=== PATIENT | male | born 1935 | race Caucasian/White ===

== ENCOUNTER → 2018-01-27 09:24 | Outpatient (CLI) | payer OTHER, MEDICARE, SELFPAY ==
[2018-01-27 10:02] LABS: Add Manual Diff / Slide Review NO; Eosinophils Percent Auto 8.4 % (2-4); Hematocrit 40.5 % (41-53); Hemoglobin 13.9 g/dL (13.5-17.5); Lymphocytes Percent Auto 31.5 % (25-40); Mean Corpuscular HGB Conc 34.3 % (30-36); Mean Corpuscular Hemoglobin 33.7 PG (26-34); Mean Corpuscular Volume 98.3 fL (80-100); Monocytes Percent Auto 9.2 % (3-14); Neutrophils Absolute Auto 3200 /uL (3000-5900); Neutrophils Percent Auto 48.9 % (50-75); Platelet Count 182 X10^3/uL (150-400); Red Blood Cell Count 4.12 X10^6/uL (4.5-5.9); Red Cell Distribution Width 13.3 % (11.6-14.8); White Blood Cell Count 6.6 X10^3/uL (4.5-11.0)
[2018-01-27 10:41] LABS: Alanine Aminotransferase 43 IU/L (21-72); Albumin 4.2 g/dL (3.5-5.0); Albumin Globulin Ratio 1.5 (1.0-2.8); Alkaline Phosphatase 71 U/L (38-126); Aspartate Aminotransferase 29 IU/L (17-59); BUN Creatinine Ratio 22.2 (6-22); Bilirubin Total 0.7 mg/dL (0.2-1.3); Blood Urea Nitrogen 20 mg/dL (9-20); Calcium 8.9 mg/dL (8.4-10.2); Carbon Dioxide 26 mmol/L (22-32); Chloride 104 mmol/L (98-107); Cholesterol 152 mg/dL (140-199); Estimated Glomerular Filt Rate > 60.0 mL/min (>60); Globulin 2.8 g/dL (1.7-4.1); Glucose 116 mg/dL (80-110); HDL Cholesterol 58 mg/dL (40-60); HEMOLYSIS < 15 (0-50); LDL Cholesterol Calculated 81 mg/dL (<100); Potassium 4.8 mmol/L (3.4-5.1); Sodium 142 mmol/L (137-145); Triglycerides 66 mg/dL (35-150)
[2018-01-27 11:05] LABS: Prostate Specific Antigen Scrn 1.13 ng/mL (0.1-4.0)
== END ==
PROVIDERS: PCP Internal Medicine; Visit Provider Internal Medicine
DX: I25.10 Atherosclerotic heart disease of native coronary artery without angina pectoris (principal); Z12.5 Encounter for screening for malignant neoplasm of prostate
CPT/HCPCS: 36415; 80053; 80061; 85025; G0103

== ENCOUNTER → 2019-06-05 13:34 | Outpatient (CLI) | payer MEDICARE, SELFPAY ==
[2019-06-05 16:04] LABS: Blood Urea Nitrogen 28 mg/dL (9-20); Calcium 9.8 mg/dL (8.4-10.2); Carbon Dioxide 25 mmol/L (22-32); Chloride 103 mmol/L (98-107); Estimated Glomerular Filt Rate > 60.0 mL/min (>60); Glucose 105 mg/dL (80-110); HEMOLYSIS < 15 (0-50); Potassium 4.4 mmol/L (3.4-5.1); Sodium 140 mmol/L (137-145)
== END ==
PROVIDERS: PCP Internal Medicine; Visit Provider Specialist
DX: R31.9 Hematuria, unspecified (principal)
CPT/HCPCS: 36415; 80048

== ENCOUNTER → 2019-06-11 09:01 | Outpatient (CLI) | payer MEDICARE, SELFPAY ==
--- NOTE | 2019-06-11 | DI.CT.S_ITS ---
PROCEDURE: CT ABDOMEN PELVIS WO/W CON INDICATIONS: Hematuria, unspecified TECHNIQUE: Optional 5 mm thick noncontrast images acquired from the diaphragm to the symphysis pubis. After the administration of intravenous contrast, 5 mm thick images acquired from the diaphragm to the symphysis pubis after a 10-minute delay. 2 mm thick coronal and sagittal reformats were then performed of the kidneys and ureters. For radiation dose reduction, the following was used: automated exposure control, adjustment of mA and/or kV according to patient size. COMPARISON: None. FINDINGS: Image quality: Excellent. Lung bases: Lung bases are clear. Heart size is normal. Post median sternotomy. Coronary artery calcifications. Urinary system: Mild atrophy of the right kidney. No hydronephrosis or nephrolithiasis. There is normal bilateral renal enhancement. No solid renal mass. A few simple cysts. Renal calyces appear normal in morphology when filled with contrast. Opacified portions of both ureters demonstrate normal caliber. No ureteral filling defects. Left base bladder mass measuring 2.6 x 1.9 cm, (3/196). No bladder stone. Other solid organs: Liver is normal in size and enhancement. Possible hepatic steatosis. A few small well circumscribed hypodensities which have the appearance of benign cysts. Gallbladder is normal. Biliary system is non dilated. Pancreas enhances normally. Spleen is normal in size and enhancement. No adrenal nodules. Peritoneum and bowel: Bowel loops demonstrate normal wall thickness and caliber. Moderate sigmoid colon diverticulosis. No free fluid or air. Nodes and vessels: No retroperitoneal or mesenteric adenopathy by size criteria. Infrarenal abdominal aortic aneurysm measures 4.3 cm, (5/22). Aortoiliac stent graft repair is patent. No obvious endoleak. Moderate calcified atherosclerotic plaque. The celiac, SMA, PARMINDER are patent. Abdominal wall: Small fat containing paraumbilical hernia. Pelvis: No pathologic free pelvic fluid. Prostate median lobe hypertrophy. No inguinal hernias or adenopathy. Bones: No suspicious bony lesions. No vertebral body compression fractures. IMPRESSION: 1. Left base bladder mass measuring approximately 2.6 cm. 2. No renal mass. No upper urinary tract filling defect identified. 3. Abdominal aortic aneurysm stent graft repair. Comment: Findings were discussed with Fabian Benjamin M.D. by Dawson Smith M.D. at the time of dictation. Dictated by: Dawson Smith M.D. on 06/11/2019 at 14:38 Approved by: Dawson Smith M.D. on 06/11/2019 at 15:04
== END ==
PROVIDERS: Family Provider Internal Medicine; PCP Internal Medicine; Visit Provider Specialist
DX: R31.9 Hematuria, unspecified (principal); N32.9 Bladder disorder, unspecified
CPT/HCPCS: 74178; Q9967

== ENCOUNTER → 2019-08-05 10:30 | Outpatient (CLI) | payer MEDICARE, OTHER, SELFPAY ==
[2019-08-05 11:03] LABS: BUN Creatinine Ratio 19.2 (6-22); Blood Urea Nitrogen 23 mg/dL (9-20); Calcium 8.9 mg/dL (8.4-10.2); Carbon Dioxide 24 mmol/L (22-32); Chloride 108 mmol/L (98-107); Estimated Glomerular Filt Rate 57.8 mL/min (>60); Glucose 124 mg/dL (80-110); HEMOLYSIS < 15 (0-50); Potassium 4.5 mmol/L (3.4-5.1); Sodium 141 mmol/L (137-145)
--- NOTE | 2019-08-05 11:19 | DI.CT.S_ITS ---
PROCEDURE: CT ABDOMEN PELVIS WO/W CON INDICATIONS: BLADDER TUMOR TECHNIQUE: Optional 5 mm thick noncontrast images acquired from the diaphragm to the symphysis pubis. After the administration of intravenous contrast, 5 mm thick images acquired from the diaphragm to the symphysis pubis after a 10-minute delay. 2 mm thick coronal and sagittal reformats were then performed of the kidneys and ureters. For radiation dose reduction, the following was used: automated exposure control, adjustment of mA and/or kV according to patient size. COMPARISON: [facility], CT, CT ABDOMEN PELVIS WO/W CON, 06/11/2019, 9:09. [facility], CR, XR INTRAOPERATIVE FLUORO UP TO 1 HOUR, 07/20/2019, 10:11. FINDINGS: Image quality: Excellent. Lung bases: Lung bases are clear. Heart size is normal. Urinary system: Both kidneys are normal in size, without hydronephrosis or nephrolithiasis on pre-contrast images. There is a double pigtail left ureteral stent in expected position. The post contrast imaging shows this ureteral stent to pass into the bladder lumen through an area of prior polypoid mass seen by CT scanning 06/11/19 and no longer identified as a discrete entity. There is mild irregular left lateral and left posterolateral mild bladder wall thickening, in the area of potential prior surgical intervention related to that mass. No perinephric fat stranding. There is normal bilateral renal enhancement. Renal calyces appear normal in morphology when filled with contrast. Opacified portions of both ureters demonstrate normal caliber. Bladder wall thickness is normal. No calcified bladder stones. Other solid organs: Liver is normal in size and enhancement. Gallbladder appears normal. Biliary system is non dilated. Pancreas enhances normally. Spleen is normal in size and enhancement. No adrenal nodules. Peritoneum and bowel: Bowel loops demonstrate normal wall thickness and caliber. No free fluid or air. Nodes and vessels: No retroperitoneal or mesenteric adenopathy by size criteria. Aorta and inferior vena cava are normal in size. Aortobiiliac bypass graft is again noted. Abdominal wall: No ventral hernias. Pelvis: No pathologic free pelvic fluid. No inguinal hernias or adenopathy. Bones: No suspicious bony lesions. No vertebral body compression fractures. IMPRESSION: Interval placement of a double pigtail left ureteral stent which crosses through the area of prior polypoid mass involving the left trigone of the bladder, virtually at or immediately adjacent to the left ureteral orifice seen on CT scanning 06/11/19. No metastatic disease found. Incidental note is again made of a normally positioned aortobiiliac bypass graft. No operative complications seen. Dictated by: Naveed Michele M.D. on 08/05/2019 at 15:38 Approved by: Naveed Michele M.D. on 08/05/2019 at 15:43
== END ==
PROVIDERS: Family Provider Internal Medicine; PCP Internal Medicine; Visit Provider Specialist
DX: D49.4 Neoplasm of unspecified behavior of bladder (principal); C61 Malignant neoplasm of prostate; Z96.0 Presence of urogenital implants
CPT/HCPCS: 36415; 74178; 80048; Q9967

== ENCOUNTER → 2019-11-25 09:19 | Outpatient (CLI) | payer MEDICARE, OTHER, SELFPAY ==
[2019-11-25 10:11] LABS: BUN Creatinine Ratio 29.9 (6-22); Blood Urea Nitrogen 26 mg/dL (9-20); Calcium 9.2 mg/dL (8.4-10.2); Carbon Dioxide 25 mmol/L (22-32); Chloride 107 mmol/L (98-107); Estimated Glomerular Filt Rate > 60.0 mL/min (>60); Glucose 126 mg/dL (80-110); HEMOLYSIS < 15 (0-50); Potassium 4.3 mmol/L (3.4-5.1); Sodium 140 mmol/L (137-145)
--- NOTE | 2019-11-25 10:18 | DI.CT.S_ITS ---
PROCEDURE: CT ABDOMEN PELVIS WO/W CON INDICATIONS: Malignant neoplasm of lateral wall of bladder TECHNIQUE: Optional 5 mm thick noncontrast images acquired from the diaphragm to the symphysis pubis. After the administration of intravenous contrast, 5 mm thick images acquired from the diaphragm to the symphysis pubis after a 10-minute delay. 2 mm thick coronal and sagittal reformats were then performed of the kidneys and ureters. For radiation dose reduction, the following was used: automated exposure control, adjustment of mA and/or kV according to patient size. COMPARISON: [facility], CT, CT ABDOMEN PELVIS WO/W CON, 06/11/2019, 9:09. [facility], CT, CT ABDOMEN PELVIS WO/W CON, 08/05/2019, 11:14. FINDINGS: Image quality: Excellent. Lung bases: Punctate pulmonary nodule at the right lung base. Mild bibasilar atelectasis. Heart size is normal. Post median sternotomy and CABG. Urinary system: Both kidneys are normal in size, without hydronephrosis or nephrolithiasis on pre-contrast images. Scarring at the inferior pole the right kidney. A few small cortical simple cysts. No solid mass. There is normal bilateral renal enhancement. Renal calyces appear normal in morphology when filled with contrast. Opacified portions of both ureters demonstrate normal caliber. No upper urinary tract filling defect within the opacified portions. Layering contrast filling the inferior portion of the urinary bladder. The previously seen thickening along the left bladder base is less conspicuous on both the precontrast and postcontrast images. No calcified bladder stones. Other solid organs: Liver is normal in size. A small cyst in the inferior right lobe, unchanged. Hepatic steatosis. Gallbladder is unremarkable. Biliary system is non dilated. Pancreas enhances normally. Spleen is normal in size and enhancement. No adrenal nodules. Peritoneum and bowel: Bowel loops demonstrate normal wall thickness and caliber. A few scattered colonic diverticuli. No free fluid or air. Nodes and vessels: No retroperitoneal or mesenteric adenopathy by size criteria. Abdominal aortic aneurysm measuring up to 4.3 cm, (5/105), previously 4.3 cm when remeasured in a similar fashion. Post aortoiliac stent graft repair. No endoleak seen. Abdominal wall: Small fat-containing periumbilical hernia. Pelvis: No pathologic free pelvic fluid. Fat containing left inguinal hernia. No adenopathy. Bones: No suspicious bony lesions. Stable L1 mild compression fracture. Multilevel DDD. IMPRESSION: 1. Decrease conspicuity of the left bladder base mass presumably due to treatment. 2. No metastatic disease identified. 3. Stable abdominal aortic aneurysm post aortoiliac stent graft repair. Dictated by: Dawson Smtih M.D. on 11/25/2019 at 10:43 Approved by: Dawson Smith M.D. on 11/25/2019 at 10:58
== END ==
PROVIDERS: Family Provider Internal Medicine; PCP Internal Medicine; Referring Provider Specialist; Visit Provider Specialist
DX: C67.2 Malignant neoplasm of lateral wall of bladder (principal); R91.1 Solitary pulmonary nodule; J98.11 Atelectasis; N28.1 Cyst of kidney, acquired; K76.0 Fatty (change of) liver, not elsewhere classified; I71.4 Abdominal aortic aneurysm, without rupture; K40.90 Unilateral inguinal hernia, without obstruction or gangrene, not specified as recurrent; K42.9 Umbilical hernia without obstruction or gangrene; Z95.1 Presence of aortocoronary bypass graft
CPT/HCPCS: 36415; 74178; 80048; Q9967

== ENCOUNTER → 2020-02-18 09:41 | Outpatient (CLI) | payer MEDICARE, OTHER, SELFPAY ==
[2020-02-18 10:12] LABS: Hemoglobin 13.3 g/dL (13.5-17.5); Mean Corpuscular HGB Conc 34.2 % (30-36); Mean Corpuscular Hemoglobin 33.8 PG (26-34); Mean Corpuscular Volume 98.7 fL (80-100); Platelet Count 194 X10^3/uL (150-400); Red Blood Cell Count 3.95 X10^6/uL (4.5-5.9); Red Cell Distribution Width 13.2 % (11.6-14.8); White Blood Cell Count 10.2 X10^3/uL (4.5-11.0)
[2020-02-18 10:25] LABS: Alanine Aminotransferase 33 IU/L (<50); Albumin 4.2 g/dL (3.5-5.0); Albumin Globulin Ratio 1.4 (1.0-2.8); Alkaline Phosphatase 78 U/L (38-126); Aspartate Aminotransferase 32 IU/L (17-59); Bilirubin Total 0.7 mg/dL (0.2-1.3); Blood Urea Nitrogen 25 mg/dL (9-20); Calcium 9.4 mg/dL (8.4-10.2); Carbon Dioxide 25 mmol/L (22-32); Chloride 106 mmol/L (98-107); Cholesterol 131 mg/dL (140-199); Estimated Glomerular Filt Rate > 60.0 mL/min (>60); Globulin 2.9 g/dL (1.7-4.1); Glucose 116 mg/dL (80-110); HDL Cholesterol 51 mg/dL (40-60); HEMOLYSIS < 15 (0-50); LDL Cholesterol Calculated 66 mg/dL (<100); Potassium 5.2 mmol/L (3.4-5.1); Sodium 139 mmol/L (137-145); Total Protein 7.1 g/dL (6.3-8.2); Triglycerides 72 mg/dL (35-150)
[2020-02-18 11:03] LABS: Neutrophils Absolute Manual 7650 /uL (3000-5900); Total Cells Counted 100
[2020-02-18 11:04] LABS: RBC Morphology Normal Morphology
== END ==
PROVIDERS: Family Provider Internal Medicine; PCP Internal Medicine; Referring Provider Internal Medicine; Visit Provider Internal Medicine
DX: I10 Essential (primary) hypertension (principal); E78.5 Hyperlipidemia, unspecified; I25.10 Atherosclerotic heart disease of native coronary artery without angina pectoris
CPT/HCPCS: 36415; 80053; 80061; 85025

== ENCOUNTER → 2020-03-16 11:31 | Outpatient (CLI) | payer MEDICARE, OTHER, SELFPAY ==
[2020-03-16 12:30] LABS: Add Manual Diff / Slide Review NO; Basophils Absolute Auto 100 /uL (0-100); Basophils Percent Auto 1.2 % (0-2); Eosinophils Absolute Auto 900 /uL (0-450); Eosinophils Percent Auto 9.4 % (2-4); Hematocrit 38.8 % (41-53); Hemoglobin 12.8 g/dL (13.5-17.5); Lymphocytes Absolute Auto 2700 /uL (1100-4500); Lymphocytes Percent Auto 29.6 % (25-40); Mean Corpuscular Hemoglobin 32.7 PG (26-34); Mean Corpuscular Volume 99.1 fL (80-100); Monocytes Absolute Auto 1000 /uL (0-900); Monocytes Percent Auto 11.2 % (3-14); Neutrophils Absolute Auto 4500 /uL (1500-7000); Neutrophils Percent Auto 48.6 % (50-75); Platelet Count 183 X10^3/uL (150-400); Red Blood Cell Count 3.92 X10^6/uL (4.5-5.9); Red Cell Distribution Width 13.5 % (11.6-14.8); White Blood Cell Count 9.2 X10^3/uL (4.5-11.0)
[2020-03-16 12:58] LABS: HEMOLYSIS < 15 (0-50); Iron 93 ug/dL (49-181)
[2020-03-16 13:01] LABS: BUN Creatinine Ratio 24.5 (6-22); Blood Urea Nitrogen 23 mg/dL (9-20); Calcium 9.4 mg/dL (8.4-10.2); Carbon Dioxide 25 mmol/L (22-32); Chloride 106 mmol/L (98-107); Estimated Glomerular Filt Rate > 60.0 mL/min (>60); Glucose 117 mg/dL (80-110); HEMOLYSIS < 15 (0-50); Potassium 4.9 mmol/L (3.4-5.1); Sodium 138 mmol/L (137-145)
[2020-03-16 13:10] LABS: Percent Iron Saturation 36 % (20-50); Total Iron Binding Capacity 258 ug/dL (261-462); Transferrin 191 mg/dL (206-381)
== END ==
PROVIDERS: Family Provider Internal Medicine; PCP Internal Medicine; Referring Provider Internal Medicine; Visit Provider Internal Medicine
DX: E74.39 Other disorders of intestinal carbohydrate absorption (principal); D64.9 Anemia, unspecified; E87.5 Hyperkalemia
CPT/HCPCS: 36415; 80048; 83540; 83550; 85025

== ENCOUNTER → 2021-10-24 10:13 | Outpatient (CLI) | payer MEDICARE, OTHER, SELFPAY ==
--- NOTE | 2021-10-24 | DI.RAD.S_ITS ---
PROCEDURE: XR HIP W PEL IF DONE RT 2V INDICATIONS: Pain in right hip TECHNIQUE: AP pelvis with lateral view(s) of the right hip(s). COMPARISON: None. FINDINGS: Bones: No fractures or dislocations. Pelvic ring appears intact. No suspicious bony lesions. Severe right hip osteoarthritic degenerative changes. Mild left hip osteoarthritis. Soft tissues: The visualized bowel gas pattern is normal. No suspicious soft tissue calcifications. Right groin vascular clips. Partially visualized bilateral common iliac endovascular stents. IMPRESSION: Severe right hip osteoarthritis. Dictated by: Ebony Terrell MD, PhD on 10/24/2021 at 15:21 Approved by: Ebony Terrell MD, PhD on 10/24/2021 at 15:21
== END ==
PROVIDERS: Family Provider Internal Medicine; PCP Internal Medicine; Referring Provider Nurse Practitioner Family; Visit Provider Nurse Practitioner Family
DX: M25.551 Pain in right hip (principal); R26.2 Difficulty in walking, not elsewhere classified; M16.11 Unilateral primary osteoarthritis, right hip
CPT/HCPCS: 73502

== ENCOUNTER → 2023-04-02 13:16 | Outpatient (CLI) | payer MEDICARE, OTHER, SELFPAY ==
--- NOTE | 2023-04-02 13:17 | DI.RAD.S_ITS ---
PROCEDURE: XR SHOULDER RT MIN 2V INDICATIONS: RIGHT SHOULER PAIN TECHNIQUE: 3 views of the shoulder were acquired. COMPARISON: None. FINDINGS: Bones: No fractures or dislocations. No suspicious bony lesions. Visualized ribs appear intact. Soft tissues: No suspicious soft tissue calcifications. IMPRESSION: Unremarkable right shoulder radiographs Approved by: Garrison Mckeon M.D. on 04/02/2023 at 14:21
== END ==
PROVIDERS: PCP Nurse Practitioner Family; Referring Provider Physical Medicine & Rehabilitation; Visit Provider Physical Medicine & Rehabilitation
DX: M25.511 Pain in right shoulder (principal)
CPT/HCPCS: 73030

== ENCOUNTER → 2023-04-03 08:48 | Outpatient (CLI) | payer MEDICARE, OTHER, SELFPAY ==
--- NOTE | 2023-04-03 08:50 | DI.RAD.S_ITS ---
PROCEDURE: XR CERVICAL SPINE 4V OR 5V INDICATIONS: Right apical neck fullness? TECHNIQUE: 5 views of the cervical spine acquired. COMPARISON: None. FINDINGS: Bones: No fractures or dislocations to the C7 level. Mild diffuse degenerative disease. Bilateral facet arthropathy, most pronounced at C3-C4. Oblique images demonstrate moderate bony foraminal stenoses at C3-C4 bilaterally and C5-C6 on the left. Node is made of a broken sternal wire. Soft tissues: No prevertebral soft tissue swelling. IMPRESSION: 1. Degenerative disc and facet disease. 2. Moderate facet arthropathy as described. Dictated by: Marv Alves M.D. on 04/03/2023 at 14:11 Approved by: Marv Alves M.D. on 04/03/2023 at 14:14
== END ==
PROVIDERS: PCP Nurse Practitioner Family; Referring Provider Physical Medicine & Rehabilitation; Visit Provider Physical Medicine & Rehabilitation
DX: M47.812 Spondylosis without myelopathy or radiculopathy, cervical region (principal); M50.30 Other cervical disc degeneration, unspecified cervical region; M25.511 Pain in right shoulder; R22.2 Localized swelling, mass and lump, trunk; M19.011 Primary osteoarthritis, right shoulder; Z96.641 Presence of right artificial hip joint; Z68.28 Body mass index [BMI] 28.0-28.9, adult
CPT/HCPCS: 72050; 99214

== ENCOUNTER → 2023-04-08 11:12 | Outpatient (CLI) | payer MEDICARE, OTHER, SELFPAY ==
--- NOTE | 2023-04-08 11:14 | DI.CT.S_ITS ---
PROCEDURE: CT CHEST WO CON INDICATIONS: Right apical mass?/Personal history of nicotine dependence TECHNIQUE: Noncontrast 5 mm thick sections acquired from the pulmonary apices to the posterior costophrenic angles. 1 mm lung window, 5 mm thick coronal and sagittal and 7 mm axial MIP reformats were then acquired. For radiation dose reduction, the following was used: automated exposure control, adjustment of mA and/or kV according to patient size. COMPARISON: [facility], XR CHEST 2 VIEWS, 02/14/2018, 14:37. [facility], CR, XR SHOULDER RT MIN 2V, 04/02/2023, 13:19. [facility], CR, XR CERVICAL SPINE 4V OR 5V, 04/03/2023, 8:53. FINDINGS: Image quality: Excellent. Lungs and pleura: No mass in the right apex. Mild bilateral subpleural septal thickening. No acute air space opacities. No pleural effusions or pneumothorax. Central and peripheral airways are patent and normal in caliber. Mediastinum: Heart size is normal. Severe coronary artery calcification and CABG. No pericardial effusion. No mediastinal adenopathy by size criteria. Thoracic aorta and central pulmonary arteries are normal in size. Esophagus is normal in caliber. No hiatal hernia. Bones and chest wall: Sternotomy. The most superior sternal wire is fractured. No suspicious bony lesions. No vertebral body compression fractures. No axillary or supraclavicular adenopathy by size criteria. Thyroid gland is normal. Abdomen: Visualized upper abdominal solid organs and bowel loops appear normal in the absence of contrast. IMPRESSION: 1. No right apical mass. 2. Mild bilateral subpleural septal thickening. Dictated by: Marv Alves M.D. on 04/08/2023 at 15:21 Approved by: Marv Alves M.D. on 04/08/2023 at 15:25
== END ==
PROVIDERS: PCP Nurse Practitioner Family; Referring Provider Physical Medicine & Rehabilitation; Visit Provider Physical Medicine & Rehabilitation
DX: J92.9 Pleural plaque without asbestos (principal); R22.2 Localized swelling, mass and lump, trunk; Z87.891 Personal history of nicotine dependence
CPT/HCPCS: 71250

== ENCOUNTER → 2023-04-30 07:24 | Outpatient (CLI) | payer MEDICARE, OTHER, SELFPAY ==
--- NOTE | 2023-04-30 07:25 | DI.MRI.S_ITS ---
PROCEDURE: MR SHOULDER RT WO CON INDICATIONS: Right shoulder pain with cuff tear TECHNIQUE: Noncontrast oblique coronal T2 fast spin echo with fat saturation, oblique sagittal T1 spin echo and T2 fast spin echo with fat saturation, axial T1 spin echo and T2 fast spin echo with fat saturation through the shoulder. COMPARISON: [facility], CR, XR SHOULDER RT MIN 2V, 04/02/2023, 13:19. FINDINGS: Image quality: Excellent. Rotator cuff: There is intermediate-grade partial-thickness tear of the distal supraspinatus tendon involving the articular surface near humeral attachment. There is mild infraspinatus and subscapularis tendinosis. Sagittal images demonstrate no rotator cuff muscle atrophy. Bones and bursae: No bone marrow contusions or fractures. Moderate acromioclavicular and glenohumeral joint degeneration. The acromion demonstrates conventional anatomy, without an os acromiale. No pathologic subacromial-subdeltoid or subcoracoid bursal fluid is present. Capsule and soft tissues: There is superior labral tear involving the biceps anchor The long head of the biceps tendon demonstrates normal location and morphology. The rotator interval appears normal, without fibrosis. The coracohumeral ligament is normal in thickness. IMPRESSION: 1. Partial-thickness tear of the distal supraspinatus tendon. 2. Mild tendinosis of the infraspinatus and subscapularis tendons. 3. Moderate acromioclavicular and glenohumeral joint degeneration. 4. Superior labral tear involving the biceps anchor. Dictated by: Marv Alves M.D. on 04/30/2023 at 11:24 Approved by: Marv Alves M.D. on 05/01/2023 at 12:18
== END ==
PROVIDERS: PCP Nurse Practitioner Family; Referring Provider Physical Medicine & Rehabilitation; Visit Provider Physical Medicine & Rehabilitation
DX: M75.111 Incomplete rotator cuff tear or rupture of right shoulder, not specified as traumatic (principal); M19.011 Primary osteoarthritis, right shoulder; S43.491A Other sprain of right shoulder joint, initial encounter
CPT/HCPCS: 73221

== ENCOUNTER 2023-06-17 22:43 | Emergency (ER) | payer MEDICARE, OTHER, SELFPAY ==
[2023-06-17 22:46] VITALS: BP 171/84; PULSE 72; RESP 18; TEMP 36.1; O2SAT 97; BMI 27.7
--- NOTE | 2023-06-17 22:47 | ED_ITS ---
HPI - General Adult General Chief complaint: Shortness of Breath/Dyspnea Stated complaint: thinks has pnemonia/cant catch breath Time Seen by Provider: 06/17/23 22:47 History of Present Illness HPI narrative: 87M former smoker with coronary artery disease status post bypass, hypertension, hyperlipidemia, history of bladder cancer presents with a chief complaint of shortness of breath over the course of the day. He states he had been in his normal state of health over the course of the evening started noticing he would become increasingly short of breath, primarily when lying flat. He states he has been coughing up some sputum off and on for the past few weeks but really did not think much of it. Tonight he feels similar to when he would previously been diagnosed with pneumonia. He denies exertional symptoms. He is had no fever or chills. He denies any swelling of his lower extremities. Related Data Home Medications Medication Instructions Recorded Confirmed valsartan 320 mg tablet 320 mg PO DAILY 06/10/20 04/03/23 amlodipine 5 mg tablet 5 mg PO DAILY 11/06/21 04/03/23 ibuprofen 200 mg tablet 200 mg PO Q6H PRN 11/06/21 04/03/23 atenolol 50 mg tablet 50 mg PO BID 11/15/21 04/03/23 atorvastatin 20 mg tablet 20 mg PO DAILY 04/03/23 04/03/23 Previous Rx's Medication Instructions Recorded furosemide 40 mg tablet (Lasix) 40 mg PO DAILY #5 tabs 06/18/23 Allergies Allergy/AdvReac Type Severity Reaction Status Date / Time No Known Drug Allergies Allergy Verified 04/03/23 07:58 Review of Systems Review of Systems Narrative: GENERAL: Denies chills, fatigue, malaise, fever, sweats. HEENT: Denies sinus pain, ear pain, sore throat, difficulty swallowing, dizziness. RESPIRATORY: See HPI CARDIOVASCULAR: Denies chest pain, palpitations, orthopnea, edema, GASTROINTESTINAL: Denies nausea, vomiting, abdominal pain, diarrhea, constipation, melena. : Denies dysuria, frequency, incontinence, hematuria, urinary retention. MUSCULOSKELETAL: denies weakness, joint pain, or bony pain SKIN: Denies rash, skin lesions, or other NEUROLOGIC: Denies weakness, headache, numbness, change in speech, confusion, seizures, incoordination. PSYCHIATRIC: No concerning psychosocial issues. 12 point review of systems is negative except for those stated above Patient History Medical History Hearing impairment History of tobacco use Mass of chest wall, right Acute neck pain DJD of right shoulder Degenerative joint disease of right hip BPH w urinary obs/LUTS History of primary bladder cancer Bladder cancer Surgical History S/P total right hip arthroplasty H/O cystoscopy Social History Smoking Status: Former smoker Smoking Status: Former smoker Exam Narrative Exam Narrative: GENERAL: [87 year old patient appears stated age. Well-developed patient, in mild distress. HEAD: Atraumatic. Normocephalic. EYES: Pupils equal round and reactive. Extraocular motions intact. No scleral icterus. No injection or drainage. ENT: Nose without bleeding, purulent drainage. Throat without erythema, tonsillar hypertrophy or exudate. Airway patent. NECK: Trachea midline. Non tender CARDIOVASCULAR: Regular rate and rhythm without murmurs, gallops, or rubs. RESPIRATORY: No significant increased work of breathing, decreased lung sounds throughout with slightly prolonged expiratory phase, faint crackles bilateral bases, no use of accessory muscles, no hypoxemia GASTROINTESTINAL: Abdomen soft, non-tender, nondistended. EXTREMITIES: No edema or joint tenderness. BACK: Nontender without deformity or crepitance. No flank tenderness. NEURO: AOx3. SKIN: No rash or erythema of visible areas Initial Vital Signs Initial Vital Signs: Vital Signs Temperature 97 F L 06/17/23 22:46 Pulse Rate 72 06/17/23 22:46 Respiratory Rate 18 06/17/23 22:46 Blood Pressure 171/84 H 06/17/23 22:46 Pulse Oximetry 97 06/17/23 22:46 Oxygen Delivery Method Room Air 06/17/23 22:46 Course Orders Ordered: ED Orders 06/17/23 22:52 XR chest 1V Stat EKG-12 Lead Stat Measure peak expiratory flow ONCE RT Consult Eval and Treat NOW 06/17/23 23:10 Complete Blood Count AUTO DIFF Stat Comprehensive Metabolic Panel Stat D Dimer Stat Lactate (Lactic Acid) Stat NT-proBNP (BNP-Adult 18+) Stat Procalcitonin Stat Prothrombin Time INR Stat Troponin I Stat 06/18/23 00:08 CT angio chest PE protocol Stat Vital Signs Vital signs: Vital Signs - 8 hr 06/17/23 22:46 06/17/23 22:53 06/17/23 22:54 Temperature 97 F L Pulse Rate 72 Respiratory Rate 18 Blood Pressure 171/84 H 164/77 H Pulse Oximetry 97 99 Oxygen Delivery Method Room Air 06/17/23 22:54 06/17/23 23:00 06/17/23 23:00 Temperature Pulse Rate 71 72 Respiratory Rate 28 H Blood Pressure 153/78 H Pulse Oximetry 97 97 Oxygen Delivery Method 06/17/23 23:30 06/17/23 23:30 06/18/23 00:00 Temperature Pulse Rate 70 Respiratory Rate 19 Blood Pressure 147/68 H 133/65 Pulse Oximetry 97 Oxygen Delivery Method 06/18/23 00:00 06/18/23 00:30 06/18/23 00:31 Temperature Pulse Rate 70 75 Respiratory Rate 17 37 H Blood Pressure 158/70 H Pulse Oximetry 97 Oxygen Delivery Method 06/18/23 00:31 06/18/23 01:00 06/18/23 01:16 Temperature Pulse Rate 76 70 73 Respiratory Rate 29 H 19 20 Blood Pressure Pulse Oximetry 95 96 97 Oxygen Delivery Method 06/18/23 01:16 06/18/23 01:30 06/18/23 01:30 Temperature Pulse Rate 69 Respiratory Rate 26 H Blood Pressure 158/70 H 143/68 H Pulse Oximetry 98 Oxygen Delivery Method 06/18/23 02:00 06/18/23 02:00 Temperature Pulse Rate 69 Respiratory Rate 14 Blood Pressure 136/64 Pulse Oximetry 98 Oxygen Delivery Method Medical Decision Making Lab Data 06/17/23 23:10 06/17/23 23:10 Labs: Lab Results 06/17/23 Range/Units 23:10 WBC 8.8 (4.5-11.0) X10^3/uL RBC 4.16 L (4.5-5.9) X10^6/uL Hgb 13.8 (13.5-17.5) g/dL Hct 40.8 L (41-53) % MCV 98.1 (80-100) fL MCH 33.1 (26-34) PG MCHC 33.7 (30-36) % RDW 13.7 (11.6-14.8) % Plt Count 191 (150-400) X10^3/uL Neut % (Auto) 52.6 (50-75) % Lymph % (Auto) 28.0 (25-40) % [place] % (Auto) 13.1 (3-14) % Eos % (Auto) 5.3 H (2-4) % Baso % (Auto) 1.0 (0-2) % Neut # (Auto) 4600 (2062-7584) /uL Lymph # (Auto) 2500 (9892-9538) /uL [place] # (Auto) 1200 H (0-900) /uL Eos # (Auto) 500 H (0-450) /uL Baso # (Auto) 100 (0-100) /uL PT 10.6 (10.1-12.7) SECONDS INR 0.9 (0.9-1.3) D-Dimer 2495 H (<500) ng/ml Sodium 139 (137-145) mmol/L Potassium 4.6 (3.4-5.1) mmol/L Chloride 107 (98-107) mmol/L Carbon Dioxide 19 L (22-32) mmol/L BUN 16 (9-20) mg/dL Creatinine 0.82 (0.66-1.25) mg/dL Estimated GFR > 60 (>60) mL/min BUN/Creatinine Ratio 19.5 (6-22) Glucose 112 H (80-110) mg/dL Lactate 1.9 (0.7-2.1) mmol/L Calcium 8.9 (8.4-10.2) mg/dL Total Bilirubin 0.5 (0.2-1.3) mg/dL AST 32 (17-59) IU/L ALT 38 (<50) IU/L Alkaline Phosphatase 62 (38-126) U/L Troponin I < 0.012 (0.01-0.034) ng/mL NT-Pro-B Natriuret Pep 934 H (<450) pg/mL Total Protein 7.7 (6.3-8.2) g/dL Albumin 4.2 (3.5-5.0) g/dL Globulin 3.5 (1.7-4.1) g/dL Albumin/Globulin Ratio 1.2 (1.0-2.8) Procalcitonin 0.06 (<0.5) ng/mL MDM Narrative Medical decision making narrative: [87] year old patient presents with shortness of breath and cough Multiple etiologies for patient's symptoms considered including, but not limited to: [Pneumonia versus CHF versus pulmonary embolism versus other] Prior Charts reviewed in our EMR Primary Historian: patient Labs reviewed and interpreted by myself: No significant leukocytosis or left shift, no signs of anemia, D-dimer 2495, primary electrolytes and renal function within normal, troponin negative, BNP 934, procalcitonin 0.06 Imaging reviewed: CTA shows no PE, no pneumonia Patient resting comfortably, no significant work of breathing, no use of accessory muscles or hypoxemia, report of wet cough, worse when lying flat suggestive of possible early, mild CHF. BNP is elevated which is in line with his. Pulmonary embolism considered but thought unlikely given lack of findings on imaging. Pneumonia also considered but thought unlikely given lack of findings on imaging. Findings and discharge diagnosis discussed with patient/family followed by verbalization of understanding Return precautions discussed with patient/family whom verbalize understanding of diagnosis and plan Discharge Plan Departure Patient Disposition: Home Clinical Impression: Breath shortness, Acute exacerbation of CHF (congestive heart failure) Instructions: DI for Heart Failure Activity Restrictions/Additional Instructions: *You have been diagnosed with [shortness of breath most likely due to some fluid overload, no evidence of obvious pneumonia, CT still pending for possible blood clot] *What to do: *Please continue to take your regular medications as directed. [ x] New medication prescriptions sent to your pharmacy: [[facility] ] [ ] New medication written as a paper prescription [ ] No new medications given *Please follow up with your primary care provider in 2-3 days, call for an appointment. Let them know you were seen in the Emergency Department and that we ask that you be seen in follow up. We will electronically transmit a record of today's note if your PCP is in our system *If you do not have a primary care provider please contact the [facility] Resource line at [phone]. They will ask some questions about your medical history and help get you set up with a doctor in the community. *Return to Emergency Department if you should have any new, worsening or concerning symptoms, such as [fever greater than 101 F, shaking chills, worsening pain, persistent vomiting or other bothersome symptoms] Prescriptions: New furosemide [Lasix] 40 mg tablet 40 mg PO DAILY Qty: 5 0RF No Action valsartan 320 mg tablet 320 mg PO DAILY atorvastatin 20 mg tablet 20 mg PO DAILY amlodipine 5 mg tablet 5 mg PO DAILY ibuprofen 200 mg tablet 200 mg PO Q6H PRN atenolol 50 mg tablet 50 mg PO BID Referrals: Sia Parikh ARNP [Primary Care Provider] - Stand Alone Forms: Patient Portal/API
--- NOTE | 2023-06-17 22:52 | DI.RAD.S_ITS ---
PROCEDURE: XR CHEST 1V INDICATIONS: Shortness of breath TECHNIQUE: One view of the chest was acquired. COMPARISON: None. FINDINGS: Surgical changes and devices: Median sternotomy wires. Prior CABG. Lungs and pleura: Lungs are clear. No pleural effusions or pneumothorax. Mediastinum: Prominent cardiomediastinal contour. No significant central venous congestion. Bones and chest wall: No suspicious bony lesions. Overlying soft tissues appear unremarkable. IMPRESSION: 1. Mildly enlarged cardiomediastinal contour with postsurgical changes. This may be a normal postop appearance for this patient. 2. The visible lung bowens are clear. Dictated by: Gege Young M.D. on 06/18/2023 at 0:54 Approved by: Gege Young M.D. on 06/18/2023 at 0:55
[2023-06-17 22:53] VITALS: O2SAT 99
[2023-06-17 22:54] VITALS: BP 164/77; PULSE 71; O2SAT 97
[2023-06-17 23:00] VITALS: BP 153/78; PULSE 72; RESP 28; O2SAT 97
[2023-06-17 23:26] LABS: Add Manual Diff / Slide Review NO; Basophils Absolute Auto 100 /uL (0-100); Eosinophils Absolute Auto 500 /uL (0-450); Eosinophils Percent Auto 5.3 % (2-4); Hematocrit 40.8 % (41-53); Hemoglobin 13.8 g/dL (13.5-17.5); Lymphocytes Absolute Auto 2500 /uL (1100-4500); Mean Corpuscular HGB Conc 33.7 % (30-36); Mean Corpuscular Hemoglobin 33.1 PG (26-34); Mean Corpuscular Volume 98.1 fL (80-100); Monocytes Absolute Auto 1200 /uL (0-900); Monocytes Percent Auto 13.1 % (3-14); Neutrophils Absolute Auto 4600 /uL (1500-7000); Neutrophils Percent Auto 52.6 % (50-75); Platelet Count 191 X10^3/uL (150-400); Red Blood Cell Count 4.16 X10^6/uL (4.5-5.9); Red Cell Distribution Width 13.7 % (11.6-14.8); White Blood Cell Count 8.8 X10^3/uL (4.5-11.0)
[2023-06-17 23:30] VITALS: BP 147/68; PULSE 70; RESP 19; O2SAT 97
[2023-06-17 23:30] LABS: INR 0.9 (0.9-1.3); Prothrombin Time 10.6 SECONDS (10.1-12.7)
[2023-06-17 23:35] LABS: Lactate (Lactic Acid) 1.9 mmol/L (0.7-2.1)
[2023-06-17 23:36] LABS: Alanine Aminotransferase 38 IU/L (<50); Albumin 4.2 g/dL (3.5-5.0); Albumin Globulin Ratio 1.2 (1.0-2.8); Alkaline Phosphatase 62 U/L (38-126); Aspartate Aminotransferase 32 IU/L (17-59); BUN Creatinine Ratio 19.5 (6-22); Bilirubin Total 0.5 mg/dL (0.2-1.3); Blood Urea Nitrogen 16 mg/dL (9-20); Calcium 8.9 mg/dL (8.4-10.2); Carbon Dioxide 19 mmol/L (22-32); Chloride 107 mmol/L (98-107); Estimated Glomerular Filt Rate > 60 mL/min (>60); Globulin 3.5 g/dL (1.7-4.1); Glucose 112 mg/dL (80-110); Potassium 4.6 mmol/L (3.4-5.1); Sodium 139 mmol/L (137-145); Total Protein 7.7 g/dL (6.3-8.2)
[2023-06-17 23:46] LABS: D Dimer 2495 ng/ml (<500)
[2023-06-17 23:47] LABS: HEMOLYSIS 61 (0-50); NT-proBNP (BNP-Adult 18+) 934 pg/mL (<450); Troponin I < 0.012 ng/mL (0.01-0.034)
[2023-06-18] VITALS (7 sets, daily range): BP systolic 133–158; BP diastolic 64–70; PULSE 69–76; RESP 14–37; O2SAT 95–98
--- NOTE | 2023-06-18 00:08 | DI.CT.S_ITS ---
PROCEDURE: CT ANGIO CHEST PE PROTOCOL INDICATIONS: SOB, critical Dimer TECHNIQUE: After the administration of intravenous contrast, 2 mm thick sections acquired from the pulmonary apices to the posterior costophrenic angles. 3-dimensional maximum intensity projection (MIP) coronal and sagittal reformats were then acquired through the thorax. For radiation dose reduction, the following was used: automated exposure control, adjustment of mA and/or kV according to patient size. COMPARISON: None. FINDINGS: Image quality: Excellent. Pulmonary arteries: Pulmonary arteries are normal in size, and demonstrate no intraluminal filling defects to suggest central pulmonary embolism. Lungs and pleura: Mild centrilobular emphysematous changes in the upper lobes. Scattered upper and lower lung subpleural septal thickening and peripheral reticulation to a mild degree. Central airways patent. There is peripheral bronchial wall thickening bilaterally with mild peripheral airway narrowing in the medial right lung base. No focal dense parenchymal consolidations, ground-glass opacities, or effusions. Mediastinum: Heart is moderately enlarged with heavy coronary artery calcification and surgical changes of prior coronary artery bypass. No pericardial effusion. There is mild right hilar adenopathy, chronic and presumably reactive to chronic lung disease. Thoracic aorta is normal in caliber and enhancement. Esophagus is normal in caliber, without hiatal hernia. Bones and chest wall: No suspicious bony lesions. Ribs and thoracic spine appear intact throughout. Multilevel degenerative bridging endplate osteophytes. Thyroid gland is diminutive but normal.. No axillary or supraclavicular adenopathy. Abdomen: Visualized upper abdominal solid organs appear normal in the early arterial phase of enhancement. IMPRESSION: 1. No pulmonary embolus. 2. Chronic findings of mild emphysema and early interstitial lung disease with a nonspecific pattern. 3. Bronchial wall thickening, increased compared to prior suggesting acute bronchitis. No focal parenchymal opacities suggest pneumonia. 4. Heavy coronary artery calcification with evidence of prior surgical intervention. Dictated by: Gege Young M.D. on 06/18/2023 at 2:19 Approved by: Gege Young M.D. on 06/18/2023 at 2:25
[2023-06-18 00:10] LABS: Procalcitonin 0.06 ng/mL (<0.5)
== END 2023-06-18 02:47 | disposition home or self-care (01) ==
PROVIDERS: Emergency Provider Emergency Medicine; PCP Nurse Practitioner Family
DX: R06.02 Shortness of breath (principal); I50.9 Heart failure, unspecified; R79.89 Other specified abnormal findings of blood chemistry
CPT/HCPCS: 36415; 71045; 71275; 80053; 83605; 83880; 84145; 84484; 85025; 85379; 85610; 93005; 93010; 99284; Q9967

== ENCOUNTER → 2023-07-22 13:38 | Outpatient (CLI) | payer MEDICARE, OTHER, SELFPAY ==
--- NOTE | 2023-07-22 13:41 | DI.RAD.S_ITS ---
PROCEDURE: XR KNEE RT 3V INDICATIONS: Right knee djd TECHNIQUE: 3 views of the knee were acquired. COMPARISON: None. FINDINGS: Bones: No fractures or dislocations. No suspicious bony lesions. There is moderate osteoarthritic type degenerative change involving the patient's right knee with the patellofemoral joint most severely affected. There is mild to moderate lateral tilting of the patella. Soft tissues: No joint effusion. No suspicious soft tissue calcifications. Atherosclerotic vascular calcifications are noted. IMPRESSION: 1. 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 2. Mild to moderate lateral tilting of the patella. 3. Atherosclerotic vascular calcifications. 4. No evidence for acute osseous abnormality identified. Dictated by: Kurt Calderon M.D. on 07/22/2023 at 14:22 Approved by: Kurt Calderon M.D. on 07/22/2023 at 14:24
== END ==
PROVIDERS: PCP Nurse Practitioner Family; Referring Provider Physical Medicine & Rehabilitation; Visit Provider Physical Medicine & Rehabilitation
DX: M17.11 Unilateral primary osteoarthritis, right knee (principal); M89.9 Disorder of bone, unspecified; I25.10 Atherosclerotic heart disease of native coronary artery without angina pectoris; Z96.641 Presence of right artificial hip joint; H90.0 Conductive hearing loss, bilateral; M19.011 Primary osteoarthritis, right shoulder; Z85.51 Personal history of malignant neoplasm of bladder; M75.41 Impingement syndrome of right shoulder
CPT/HCPCS: 73562; 99214

== ENCOUNTER → 2023-12-24 11:11 | Outpatient (CLI) | payer MEDICARE, OTHER, SELFPAY | PROVIDERS: PCP Nurse Practitioner Family; Visit Provider Specialist | DX: N40.1 Benign prostatic hyperplasia with lower urinary tract symptoms (principal); N13.8 Other obstructive and reflux uropathy | CPT/HCPCS: 87077; 87086 ==

== ENCOUNTER → 2024-01-31 15:27 | Outpatient (CLI) | payer MEDICARE, OTHER, SELFPAY ==
[2024-01-31 16:03] LABS: Appearance Urine UA CLEAR; Bilirubin Urine UA NEGATIVE (NEGATIVE); Color Urine UA YELLOW; Glucose Urine UA NEGATIVE (Negative); Ketones Urine UA NEGATIVE (NEGATIVE); Leukocyte Esterase Urine UA NEGATIVE (NEGATIVE); Nitrite Urine UA NEGATIVE (Negative); Occult Blood Urine UA NEGATIVE (Negative); Protein Urine UA 1+ (Negative); Specific Gravity Urine UA 1.015 (1.000-1.035); Urobilinogen Urine UA 0.2 E.U./dL (0.2)
[2024-01-31 16:11] LABS: Bacteria Urine Occasional (0-1); Culture Indicated Urine Cult Not Indicated; RBC Urine 0-1/HPF (0-5/HPF); Squamous Epithelial Cell Urine 0-1 /HPF (0-5/HPF); Urine Volume 10mL (spun); WBC Urine 1-5/HPF (0-5/HPF)
== END ==
PROVIDERS: PCP Nurse Practitioner Family; Visit Provider Specialist
DX: N40.1 Benign prostatic hyperplasia with lower urinary tract symptoms (principal); N13.8 Other obstructive and reflux uropathy
CPT/HCPCS: 81001

== ENCOUNTER → 2024-04-28 09:16 | Outpatient (CLI) | payer MEDICARE, OTHER, SELFPAY ==
[2024-04-28 10:18] LABS: Estimated Glomerular Filt Rate > 60 mL/min (>60)
== END ==
PROVIDERS: PCP Nurse Practitioner Family; Referring Provider Urology; Visit Provider Urology
DX: Z08 Encounter for follow-up examination after completed treatment for malignant neoplasm (principal); Z85.51 Personal history of malignant neoplasm of bladder
CPT/HCPCS: 36415; 52000; 81002; 82565; 99214

== ENCOUNTER → 2024-05-09 09:49 | Outpatient (CLI) | payer MEDICARE, OTHER, SELFPAY ==
--- NOTE | 2024-05-09 09:51 | DI.CT.S_ITS ---
PROCEDURE: CT IVP A/P W/WO INDICATIONS: 88 y/o M w/ h/o bladder cancer, please eval upper tracts TECHNIQUE: Optional 5 mm thick noncontrast images acquired from the diaphragm to the symphysis pubis. After the administration of intravenous contrast, 5 mm thick images acquired from the diaphragm to the symphysis pubis after a 10-minute delay. 2 mm thick coronal and sagittal reformats were then performed of the kidneys and ureters. For radiation dose reduction, the following was used: automated exposure control, adjustment of mA and/or kV according to patient size. COMPARISON: [facility], CT, CT ABDOMEN PELVIS WO/W CON, 11/25/2019, 10:16. FINDINGS: Image quality: Diagnostic. Peritoneum: No pneumoperitoneum or ascites. Re-identified hazy appearance of the mesentery around the superior mesenteric artery (), which can be seen with sclerosing mesenteritis. Bones: Diffuse osseous demineralization. Status post right hip total arthroplasty without hardware complication. Chronic L1 superior endplate compression fracture with up to 50% height loss (). 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 Lower Chest: Cardiomegaly, including left atrial enlargement. Coronary artery calcifications and stent placement. Median sternotomy wires. Scarring of the lung bases. Liver: Normal in size and contour. Hepatic steatosis. 1.1 cm right hepatic hypodense lesion, likely a cyst (). Gallbladder: No stones or pericholecystic fluid. Biliary tree: No intrahepatic or extrahepatic biliary ductal dilatation. Pancreas: Within normal limits. Spleen: Normal in size and contour. Kidneys: No hydronephrosis or obstructive urolithiasis. Slightly atrophic appearance of the kidneys, right greater than left. No filling defect in the opacified portions of the ureter or collecting system. No renal mass. Re-identified bilateral renal cysts. Adrenals: No adrenal nodularity. Bladder: Normal in size and wall thickness. : No acute abnormality. Stomach: Normal in size and contour. Bowel: Normal in diameter without any bowel obstruction. Nonvisualization of the appendix. No secondary signs of acute appendicitis. Scattered colonic diverticulosis. Lymph Nodes: No retroperitoneal, mesenteric, or inguinal lymphadenopathy. 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 Soft Tissues: Asymmetric atrophy of the right iliopsoas muscle. Small fat containing umbilical and left inguinal hernias. IMPRESSION: 1. No nephrolithiasis or filling defects within the opacified renal collecting system or ureters. Chronic, mild atrophic appearance of the kidneys. 2. Mild increase in size of 5 cm juxtarenal abdominal aortic aneurysm status post aortobiiliac stent graft repair. 3. Hepatic steatosis. 4. Cardiomegaly with left atrial enlargement. Dictated by: Yinka Sewell M.D. on 05/10/2024 at 17:41 Approved by: Yinka Sewell M.D. on 05/10/2024 at 18:04
== END ==
LOC: CT 09:49
PROVIDERS: PCP Nurse Practitioner Family; Referring Provider Urology; Visit Provider Urology
DX: Z85.51 Personal history of malignant neoplasm of bladder (principal); Z08 Encounter for follow-up examination after completed treatment for malignant neoplasm; I71.42 Juxtarenal abdominal aortic aneurysm, without rupture; K76.0 Fatty (change of) liver, not elsewhere classified; I51.7 Cardiomegaly
CPT/HCPCS: 74178; Q9967